=== PATIENT | male | born 1970 | race African-American/Black ===

== ENCOUNTER 2017-07-17 02:27 | Emergency (ER) | payer SELFPAY ==
[~2017-07-17] VITALS: Ht 175.3 cm; Wt 73.0 kg
[2017-07-17 05:05] VITALS: BP 137/74
[2017-07-17] MEDS ORDERED: ONDANSETRON 4MG ODT PO ONE (07:00)
== END 2017-07-17 08:00 | disposition home or self-care (01) ==
LOC: ER 02:27
DX: R11.2 Nausea with vomiting, unspecified (principal); R19.7 Diarrhea, unspecified; I10 Essential (primary) hypertension; F12.10 Cannabis abuse, uncomplicated
CPT/HCPCS: 99283; Q0162